=== PATIENT | female | born 1955 | race Caucasian/White ===

== ENCOUNTER 2021-03-29 15:19 | Outpatient (REF) | payer OTHER, SELFPAY ==
--- NOTE | ~2021-03-29 | XR_ITS ---
EXAMINATION: XR CHEST CLINICAL INFORMATION: Shortness of breath. Rule out pneumonia. COMPARISON: None TECHNIQUE: 2 views of the chest were obtained. FINDINGS: The cardiac and mediastinal contours are stable. There is linear scarring or subsegmental atelectasis of the left lung base. The lungs are otherwise clear. No evidence of pneumonia is seen. There is partial eventration or possibly diaphragmatic hernia involving left posterior hemidiaphragm. There is no pleural effusion or pneumothorax. Bony structures are unremarkable. XR/XR chest 2V IMPRESSION: No evidence of pneumonia. Partial eventration or diaphragmatic hernia involving the left posterior hemidiaphragm and adjacent left basilar subsegmental atelectasis. This could be better evaluated with CT scan if clinically indicated.
== END 2021-03-29 15:20 | disposition home or self-care (01) ==
LOC: HO.HMGCX 15:19
PROVIDERS: PCP Internal Medicine; Visit Provider Internal Medicine
DX: R06.02 Shortness of breath (principal)
CPT/HCPCS: 71046

== ENCOUNTER 2021-12-26 15:10 | Outpatient (REF) | payer OTHER, SELFPAY ==
--- NOTE | ~2021-12-26 | XR_ITS ---
EXAMINATION: XR FOOT, RIGHT CLINICAL INFORMATION: Tarsal tunnel syndrome. COMPARISON: None. TECHNIQUE: AP, lateral, and oblique views of the right foot. FINDINGS: Significant hallux valgus angulation at the 1st metatarsophalangeal joint with lateral subluxation of the 1st proximal phalanx and hallux sesamoids. [id number] joint space narrowing with small marginal osteophytes. No osseous erosion. No fracture. No abnormal soft tissue calcification. XR/XR foot RT min 3V IMPRESSION: Prominent 1st metatarsophalangeal hallux valgus angulation with lateral subluxation of the proximal phalanx and hallux sesamoids. Moderate osteoarthritis.
== END 2021-12-26 15:11 | disposition home or self-care (01) ==
LOC: HO.XRAY 15:10
PROVIDERS: PCP Internal Medicine; Visit Provider Psychiatry & Neurology Neurology
DX: G57.50 Tarsal tunnel syndrome, unspecified lower limb (principal)
CPT/HCPCS: 73630